=== PATIENT | male | born 1985 | race African-American/Black ===

== ENCOUNTER 2017-02-25 00:54 | Emergency (ER) | payer OTHER ==
[~2017-02-25] VITALS: Ht 188 cm; Wt 68.0 kg
[~2017-02-25 00:54] MED LIST: BACTRIM DS TAB1 EAC1 ORAL; KEFLEX500 MG ORAL; LATANOPROST2.5 ML BOTH EYES; NITROFURANTOIN100 M2 ORAL; NKM; NORCO 5-325 TA1 EACH ORAL; PHENAZOPYRIDIN200 MG ORAL
[2017-02-25] MEDS ORDERED: LATANOPROST2.5 ML BOTH EYES (01:13)
[2017-02-25 01:15] VITALS: BP 112/68
[2017-02-25 01:50] VITALS: BP 120/70
[2017-02-25 02:00] VITALS: BP 120/70
--- NOTE | 2017-02-25 02:14 | Emergency Room Report ---
History of Present Illness General Chief Complaint: Male Urogenital Problems Source: Patient Present Illness HPI 31YOM walk-in asking for "hair thing" to be removed from penis that he's had for 2 months Thought it was infection but doesnt hurt, no change in size. States it bothers him to look at and bothers the girls he dates He denies dysuria, discharge but asking for STD testing since "its been a year. " Allergies: Coded Allergies: No Known Allergies (Unverified , 02/10/16) Patient History Past Medical History: none Past Surgical History: none Pertinent Family History: none Social History: Denies: alcohol use, drug use, smoking Immunizations: UTD Reviewed Nursing Documentation: PMH: Agreed, PSxH: Agreed Review of Systems All Other Systems: negative except mentioned in HPI Physical Exam Vital Signs Date Time Temp Pulse Resp B/P Pulse Ox O2 Delivery O2 Flow Rate FiO2 02/25/17 01:06 97.7 84 18 107/58 96 Room Air Sp02 EP Interpretation: reviewed, normal General Appearance: normal inspection, well appearing, no apparent distress, alert, GCS 15, non-toxic Head: normocephalic, atraumatic Eyes: bilateral eye EOMI, bilateral eye PERRL ENT: normal ENT inspection, hearing grossly normal, normal voice Neck: normal inspection, full range of motion, supple, no bony tend Respiratory: normal inspection, lungs clear, normal breath sounds, no respiratory distress, no retraction, no wheezing Cardiovascular #1: regular rate, rhythm, no edema Gastrointestinal: normal inspection, normal bowel sounds, non tender, soft, no guarding, no hernia Genitourinary: other - Small 1/2 cm papule on penile shaft. Not folliculitis. No vesicles. No sign of infection. No urinary discharge. No scrotal ttp Musculoskeletal: normal inspection, back normal, normal range of motion, Nicol' s Sign negative Neurologic: normal inspection, alert, oriented x3, responsive, spiral binder III-XII nml as tested, motor strength/tone normal, speech normal Psychiatric: normal inspection, judgement/insight normal, mood/affect normal Skin: normal inspection, normal color, no rash Medical Decision Making Diagnostic Impression: Primary Impression: Abnormal urogenital findings Additional Impression: Patient request for diagnostic testing ER Course Penile shaft papule. Not folliculitis. Doubt STD. Told to followup for Derm for cosmetic removal Advised patient we dont do STD testing I provided copy of free or low-cost clinics but patient left before given DC paperwork by RN Last Vital Signs Date Time Temp Pulse Resp B/P Pulse Ox O2 Delivery O2 Flow Rate FiO2 02/25/17 01:06 97.7 84 18 107/58 96 Room Air Status: improved Disposition: HOME, SELF-CARE Condition: Improved Additional Instructions: - Call your insurance company for dermatology referral - Go to one of the free or low-cost clinics for STD testing CHITRA HEWITT M.D. Feb 25, 2017 02:14
== END 2017-02-25 02:30 | disposition home or self-care (01) ==
LOC: EMR 02:17
DX: R86.8 Other abnormal findings in specimens from male genital organs (principal); R23.8 Other skin changes
CPT/HCPCS: 99282

== ENCOUNTER 2017-05-25 21:02 | Emergency (ER) | payer OTHER ==
[~2017-05-25] VITALS: Ht 188 cm; Wt 72.6 kg
[2017-05-25] MEDS ORDERED: AMOXICILLIN500 MG ORAL (22:00)
--- NOTE | 2017-05-25 22:00 | Emergency Room Report ---
History of Present Illness General Chief Complaint: Pain Source: Patient Present Illness HPI Is a 31-year-old male with no pseudogout medical history. He presents with swelling and growth in his left cheek. Onset for last week. Hurts when he eats. No nausea no vomiting. No fever chills denies any other complaint. Denies biting his cheek. Allergies: Coded Allergies: No Known Allergies (Unverified , 02/10/16) Patient History Past Medical History: see triage record, old chart reviewed Past Surgical History: other Pertinent Family History: none Social History: Denies: drug use Immunizations: other Reviewed Nursing Documentation: PMH: Agreed, PSxH: Agreed Review of Systems Eye: Denies: eye pain, blurred vision ENT: Denies: ear pain, nose congestion, throat swelling Respiratory: Denies: cough, shortness of breath Cardiovascular: Denies: chest pain, palpitations Gastrointestinal: Denies: abdominal pain, diarrhea, nausea, vomiting Musculoskeletal: Denies: back pain, joint pain Skin: Denies: rash Neurological: Denies: headache, numbness Endocrine: Denies: increased thirst, increased urine Hematologic/Lymphatic: Denies: easy bruising All Other Systems: negative except mentioned in HPI Physical Exam Vital Signs Date Time Temp Pulse Resp B/P (MAP) Pulse Ox O2 Delivery O2 Flow Rate FiO2 05/25/17 21:34 98.1 77 16 117/71 97 Room Air vitals normal Sp02 EP Interpretation: reviewed, normal General Appearance: well appearing, no apparent distress, alert Head: normocephalic, atraumatic Eyes: bilateral eye PERRL, bilateral eye EOMI ENT: hearing grossly normal, normal pharynx, other - Oropharynx: Inside the left cheek there is a small 1 cm growth with whitish center. It is just next to the upper left molars. No trismus. Neck: full range of motion, supple, no meningismus Respiratory: chest non-tender, lungs clear, normal breath sounds Cardiovascular #1: regular rate, rhythm, no murmur Gastrointestinal: normal bowel sounds, non tender, no mass, no organomegaly, no bruit, non-distended Musculoskeletal: back normal, gait/station normal, normal range of motion Psychiatric: mood/affect normal Skin: warm/dry Procedures Incision and Drainage Incision and Drainage : Consent: Verbal Site: Mouth Wound Location: other - Mouth Anesthesia: 1% Lidocaine Volume Anesthetic (ccs): 1 Patient Tolerated: Well Complications: None Progress I injected it with 1% lidocaine, 1 mL. I made a small incision with a scissor. There is scant amount of pus. Patient tolerated procedure without a problem. Medical Decision Making Diagnostic Impression: Primary Impression: Abscess ER Course This patient with a small abscess in his mouth. Probably from biting and it got infected. No deep infection. Better after I&D. We'll discharge him Last Vital Signs Date Time Temp Pulse Resp B/P (MAP) Pulse Ox O2 Delivery O2 Flow Rate FiO2 05/25/17 21:34 98.1 77 16 117/71 97 Room Air Status: improved Disposition: HOME, SELF-CARE Condition: Stable Scripts Amoxicillin* (AMOXIL*) 500 Mg Capsule 500 MG ORAL THREE TIMES A DAY, #21 CAP Prov: NISH LONGORIA M.D. 05/25/17 Additional Instructions: Followup with your doctor 7 days. Return if symptom worsen. NISH LONGORIA M.D. May 25, 2017 22:00
[2017-05-25 22:04] VITALS: BP 117/71
== END 2017-05-25 22:04 | disposition home or self-care (01) ==
LOC: EMR 21:54
DX: K12.2 Cellulitis and abscess of mouth (principal)
CPT/HCPCS: 10060; 99283

== ENCOUNTER 2017-11-05 14:42 | Emergency (ER) | payer OTHER ==
[~2017-11-05] VITALS: Ht 188 cm; Wt 68.0 kg
[~2017-11-05 14:42] MED LIST changes: +AMOXICILLIN500 MG ORAL
[2017-11-05 15:06] VITALS: BP 117/71
[2017-11-05] MEDS ORDERED: LATANOPROST2.5 ML BOTH EYES (15:09)
--- NOTE | 2017-11-05 15:25 | Emergency Room Report ---
History of Present Illness General Chief Complaint: Male Urogenital Problems Source: Patient Present Illness [facility] The patient is a 32-year-old male presenting for increased urinary urgency for the past 1 month. He denies other symptoms including dysuria, hematuria, penile discharge, testicular pain, fever, chills, back pain, or abdominal pain. He has had UTIs in the past. He denies any sexual contact within the past 1 month. He denies any other symptoms Allergies: Coded Allergies: No Known Allergies (Unverified , 02/10/16) Patient History Past Medical History: see triage record Pertinent Family History: none Reviewed Nursing Documentation: PMH: Agreed; PSxH: Agreed Nursing Documentation-PMH Past Medical History: No History, Except For Review of Systems All Other Systems: negative except mentioned in HPI Physical Exam Vital Signs Date Time Temp Pulse Resp B/P (MAP) Pulse Ox O2 Delivery O2 Flow Rate FiO2 11/05/17 15:06 98.0 62 17 117/71 98 Room Air 98.0 Sp02 EP Interpretation: reviewed, normal General Appearance: no apparent distress, alert, GCS 15, non-toxic Head: normocephalic, atraumatic Eyes: bilateral eye normal inspection, bilateral eye PERRL ENT: hearing grossly normal, normal pharynx, no angioedema, normal voice Gastrointestinal: normal bowel sounds, non tender, soft, non-distended, no guarding, no rebound Musculoskeletal: back normal, gait/station normal, normal range of motion, non- tender Neurologic: alert, oriented x3, responsive, motor strength/tone normal, sensory intact, speech normal Psychiatric: judgement/insight normal, memory normal, mood/affect normal, no suicidal/homicidal ideation Skin: normal color, no rash, warm/dry, well hydrated Medical Decision Making PA Attestation Dr. Yanez is my supervising physician. Patient management was discussed with my supervising physician Diagnostic Impression: Primary Impression: Urinary tract infection Qualified Codes: N39.0 - Urinary tract infection, site not specified ER Course The patient is a 32-year-old male presenting for increased urinary urgency for the past 1 month. DDx considered but not limited to: UTI, STD, orchitis, appendicitis, among others PE: Afebrile. NAD Abd is soft and non tender. No CVA tenderness exam unremarkable UA consistent with UTI The patient will be treated with Bactrim DS and will FU with PMD. ER precautions given Laboratory Tests Test 11/05/17 15:10 Urine Color Addis Urine Appearance Clear Urine pH 6 (4.5-8.0) Urine Specific [place] 1.020 (1.005-1.035) Urine Protein Negative (NEGATIVE) Urine Glucose (UA) Negative (NEGATIVE) Urine Ketones Negative (NEGATIVE) Urine Occult Blood Negative (NEGATIVE) Urine Nitrite Negative (NEGATIVE) Urine Bilirubin Negative (NEGATIVE) Urine Ictotest Negative Urine Urobilinogen 1 MG/DL (0.0-1.0) H Urine Leukocyte Esterase 1+ (NEGATIVE) H Urine RBC 0-2 /HPF (0 - 0) H Urine WBC 5-10 /HPF (0 - 0) H Urine Squamous Epithelial Cells Occasional /LPF Urine Bacteria Few /HPF (NONE) Urine Mucus Few /LPF (NONE/OCC) H Lab Results Impression UA consistent with UTI Last Vital Signs Date Time Temp Pulse Resp B/P (MAP) Pulse Ox O2 Delivery O2 Flow Rate FiO2 11/05/17 15:06 98.0 62 17 117/71 98 Room Air 98.1 Status: improved Disposition: HOME, SELF-CARE Condition: Improved Scripts Sulfamethoxazole/Trimethoprim (BACTRIM 400-80 MG TABLET*) 1 Each Tablet 1 TAB ORAL TWICE A DAY, #14 TAB Prov: ELVIN ALLISON 11/05/17 Phenazopyridine Hcl* (PYRIDIUM*) 200 Mg Tablet 200 MG ORAL THREE TIMES A DAY, #6 TAB 0 Refills Prov: ELVIN ALLISON 11/05/17 Referrals: [facility] (PCP) ELVIN ALLISON Nov 05, 2017 15:25
[2017-11-05 15:45] LABS: APPEARANCE,URINE CLEAR; BILIRUBIN, URINE NEGATIVE (NEGATIVE); COLOR,URINE AMBER; GLUCOSE, URINE (UA) NEGATIVE (NEGATIVE); KETONES,URINE NEGATIVE (NEGATIVE); LEUKOCYTE ESTERASE ,URINE 1+ (NEGATIVE); NITRITE,URINE NEGATIVE (NEGATIVE); PH,URINE 6 (4.5-8.0); PROTEIN,URINE NEGATIVE (NEGATIVE); UROBILINOGEN,URINE 1 MG/DL (0.0-1.0)
[2017-11-05] MEDS ORDERED: BACTRIM 400-801 EACH ORAL (16:16)
[2017-11-05] MEDS ORDERED: PHENAZOPYRIDIN200 MG ORAL (16:16)
[2017-11-05 16:20] VITALS: BP 117/71
== END 2017-11-05 16:20 | disposition home or self-care (01) ==
LOC: EMR 15:00
DX: N39.0 Urinary tract infection, site not specified (principal)
CPT/HCPCS: 81003; 99284

== ENCOUNTER 2019-06-18 02:51 | Emergency (ER) | payer OTHER ==
[~2019-06-18] VITALS: Ht 188 cm; Wt 68.0 kg
[~2019-06-18 02:51] MED LIST changes: +BACTRIM 400-801 EACH ORAL
[2019-06-18 03:00] VITALS: BP 129/83
[2019-06-18] MEDS ORDERED: Ketorolac 30mg Inj IV ONE (03:30)
--- NOTE | 2019-06-18 03:45 | NUR ---
ED Nurse Note: PATIENT AMBULATED TO ED C/O RIGHT ABDOMINAL PAIN X1 HOUR. REPORTS NAUSEA AND VOMITTING. DENIES DIARRHEA PT AAOX4, VSS, NO ACUTE DISTERESS. PT HAS NO SKIN ISSUES. PT IS COOPERATIVE AND RESTLESS STATED PAIN IS 9/10.
[2019-06-18 04:02] LABS: BASOPHILS % (AUTO) 1.2 % (0.0-2.0); EOSINOPHILS % (AUTO) 1.5 % (0.0-3.0); HEMATOCRIT 46.3 % (42.0-52.0); HEMOGLOBIN 15.7 G/DL (14.2-18.0); LYMPHOCYTES % (AUTO) 25.2 % (20.0-45.0); MEAN CORPUSCULAR VOLUME 92 FL (80-99); MONOCYTES % (AUTO) 5.1 % (1.0-10.0); NEUTROPHILS % (AUTO) 67.1 % (45.0-75.0); PLATELET COUNT 219 K/UL (150-450); RED BLOOD COUNT 5.03 M/UL (4.70-6.10); RED CELL DISTRIBUTION WIDTH 10.2 % (11.6-14.8); WHITE BLOOD COUNT 5.7 K/UL (4.8-10.8)
[2019-06-18 04:17] LABS: ANION GAP 9 mmol/L (5-15); BLOOD UREA NITROGEN 15 mg/dL (7-18); CALCIUM 9.5 MG/DL (8.5-10.1); CARBON DIOXIDE 28 MMOL/L (21-32); CHLORIDE 104 MMOL/L (98-107); POTASSIUM 5.1 MMOL/L (3.5-5.1); SODIUM 141 MMOL/L (136-145)
[2019-06-18 04:27] LABS: ALANINE AMINOTRANSFERASE 21 U/L (12-78); ALBUMIN 4.5 G/DL (3.4-5.0); ALBUMIN/GLOBULIN RATIO 1.2 (1.0-2.7); ALKALINE PHOSPHATASE 55 U/L (46-116); ASPARTATE AMINO TRANSFERASE 35 U/L (15-37); BILIRUBIN,TOTAL 1.8 MG/DL (0.2-1.0)
[2019-06-18 04:30] VITALS: BP 125/85
--- NOTE | 2019-06-18 04:30 | NUR ---
ED Nurse Note: Pt blood sent to lab.
[2019-06-18] MEDS ORDERED: Omnipaque-300 100ml vial INJ PRN (05:00)
[2019-06-18 05:19] LABS: BILIRUBIN, URINE NEGATIVE (NEGATIVE); COLOR,URINE AMBER; GLUCOSE, URINE (UA) NEGATIVE (NEGATIVE); KETONES,URINE NEGATIVE (NEGATIVE); LEUKOCYTE ESTERASE ,URINE 1+ (NEGATIVE); NITRITE,URINE NEGATIVE (NEGATIVE); PH,URINE 6 (4.5-8.0); PROTEIN,URINE 2+ (NEGATIVE); UROBILINOGEN,URINE NORMAL MG/DL (0.0-1.0)
--- NOTE | 2019-06-18 05:21 | NUR ---
ED Nurse Note: PT WITH APPRENTICE FUNERAL DIRECTOR.
[2019-06-18 05:29] LABS: BILIRUBIN,DIRECT 0.2 MG/DL (0.0-0.3)
[2019-06-18 05:30] VITALS: BP 120/79
[2019-06-18 05:30] LABS: APPEARANCE,URINE SLIGHTLY CLOUDY
--- NOTE | 2019-06-18 05:42 | Emergency Room Report ---
History of Present Illness General Chief Complaint: Abdominal Pain Source: Patient (Orlando Orozco MD) Present Illness HPI 33-year-old male presents ED for evaluation. Patient complaining of abdominal pain started about 1 hour ago from sleep. Right-sided, sharp, 10 out of 10, nonradiating. Notes nausea and vomiting. Denies diarrhea. Denies fevers or chills. Denies chest pain. No other aggravating relieving factors. Denies any other associated symptoms (Orlando Orozco MD) Allergies: Coded Allergies: No Known Allergies (Unverified , 02/10/16) Patient History Past Medical History: none Past Surgical History: none Pertinent Family History: none Social History: Denies: smoking, alcohol use, drug use Immunizations: UTD Reviewed Nursing Documentation: PMH: Agreed; PSxH: Agreed (Orlando Orozco MD) Nursing Documentation-PMH Past Medical History: No History, Except For (Orlando Orozco MD) Review of Systems All Other Systems: negative except mentioned in HPI (Orlando Orozco MD) Physical Exam Vital Signs Date Time Temp Pulse Resp B/P (MAP) Pulse Ox O2 Delivery O2 Flow Rate FiO2 06/18/19 02:57 97.3 70 14 120/57 (78) 95 Room Air Sp02 EP Interpretation: reviewed, normal General Appearance: no apparent distress, alert, GCS 15, non-toxic Head: normocephalic, atraumatic Eyes: bilateral eye normal inspection, bilateral eye PERRL ENT: hearing grossly normal, normal pharynx, no angioedema, normal voice Neck: full range of motion, supple/symm/no masses Respiratory: chest non-tender, lungs clear, normal breath sounds, speaking full sentences Cardiovascular #1: regular rate, rhythm, no edema Cardiovascular #2: 2+ carotid (R), 2+ carotid (L), 2+ radial (R), 2+ radial (L) , 2+ dorsalis pedis (R), 2+ dorsalis pedis (L) Gastrointestinal: normal bowel sounds, soft, non-distended, no guarding, no rebound, tenderness - RUQ Rectal: deferred Genitourinary: normal inspection, no CVA tenderness Musculoskeletal: back normal, normal range of motion, gait/station normal, non- tender Neurologic: alert, motor strength/tone normal, oriented x3, sensory intact, responsive, speech normal Psychiatric: judgement/insight normal, memory normal, mood/affect normal, no suicidal/homicidal ideation Reflexes: 3+ bicep (R), 3+ bicep (L), 3+ tricep (R), 3+ tricep (L), 3+ knee (R) , 3+ knee (L) Lymphatic: no adenopathy (rOlando Orozco MD) Medical Decision Making Diagnostic Impression: Primary Impression: Abdominal pain Additional Impression: Prostatitis Labs Test 06/18/19 03:30 06/18/19 03:40 Urine Color Addis Urine Appearance Slightly cloudy Urine pH 6 (4.5-8.0) Urine Specific [place] 1.020 (1.005-1.035) Urine Protein 2+ (NEGATIVE) Urine Glucose (UA) Negative (NEGATIVE) Urine Ketones Negative (NEGATIVE) Urine Blood 5+ (NEGATIVE) Urine Nitrite Negative (NEGATIVE) Urine Bilirubin Negative (NEGATIVE) Urine Ictotest Positive (NEGATIVE) Urine Urobilinogen Normal MG/DL (0.0-1.0) Urine Leukocyte Esterase 1+ (NEGATIVE) Urine RBC Tntc /HPF (0 - 0) Urine WBC 2-4 /HPF (0 - 0) Urine Squamous Epithelial Cells None /LPF (NONE/OCC) Urine Bacteria Few /HPF (NONE) White Blood Count 5.7 K/UL (4.8-10.8) Red Blood Count 5.03 M/UL (4.70-6.10) Hemoglobin 15.7 G/DL (14.2-18.0) Hematocrit 46.3 % (42.0-52.0) Mean Corpuscular Volume 92 FL (80-99) Mean Corpuscular Hemoglobin 31.2 PG (27.0-31.0) Mean Corpuscular Hemoglobin Concent 33.8 G/DL (32.0-36.0) Red Cell Distribution Width 10.2 % (11.6-14.8) Platelet Count 219 K/UL (150-450) Mean Platelet Volume 6.8 FL (6.5-10.1) Neutrophils (%) (Auto) 67.1 % (45.0-75.0) Lymphocytes (%) (Auto) 25.2 % (20.0-45.0) Monocytes (%) (Auto) 5.1 % (1.0-10.0) Eosinophils (%) (Auto) 1.5 % (0.0-3.0) Basophils (%) (Auto) 1.2 % (0.0-2.0) Sodium Level 141 MMOL/L (136-145) Potassium Level 5.1 MMOL/L (3.5-5.1) Chloride Level 104 MMOL/L (98-107) Carbon Dioxide Level 28 MMOL/L (21-32) Anion Gap 9 mmol/L (5-15) Blood Urea Nitrogen 15 mg/dL (7-18) Creatinine 1.0 MG/DL (0.55-1.30) Estimat Glomerular Filtration Rate > 60 mL/min (>60) Glucose Level 97 MG/DL (74-106) Calcium Level 9.5 MG/DL (8.5-10.1) Total Bilirubin 1.8 MG/DL (0.2-1.0) Direct Bilirubin 0.2 MG/DL (0.0-0.3) Aspartate Amino Transf (AST/SGOT) 35 U/L (15-37) Alanine Aminotransferase (ALT/SGPT) 21 U/L (12-78) Alkaline Phosphatase 55 U/L (46-116) Total Protein 8.4 G/DL (6.4-8.2) Albumin 4.5 G/DL (3.4-5.0) Globulin 3.9 g/dL Albumin/Globulin Ratio 1.2 (1.0-2.7) Lipase 132 U/L (73-393) (Orlando Orozco MD) ER Course Please refer to the initial note for the history exam and presentation On repeat evaluation patient is improved resting comfortably Blood work was at baseline levels CT was pending at the time of interpretation The reading reported no obvious acute process other than the prostate inflammation At a later time radiology has updated the reading and reports that there was some inflammation of the vesicle vessels Patient was attempted to be called at the number provided However after 2 attempts we did mail a report regarding change in the CT reading and the need to contact us back Patient had been placed on antibiotics However the additional findings do need to be relayed to the patient Labs Test 06/18/19 03:30 06/18/19 03:40 Urine Color Addis Urine Appearance Slightly cloudy Urine pH 6 (4.5-8.0) Urine Specific [place] 1.020 (1.005-1.035) Urine Protein 2+ (NEGATIVE) Urine Glucose (UA) Negative (NEGATIVE) Urine Ketones Negative (NEGATIVE) Urine Blood 5+ (NEGATIVE) Urine Nitrite Negative (NEGATIVE) Urine Bilirubin Negative (NEGATIVE) Urine Ictotest Positive (NEGATIVE) Urine Urobilinogen Normal MG/DL (0.0-1.0) Urine Leukocyte Esterase 1+ (NEGATIVE) Urine RBC Tntc /HPF (0 - 0) Urine WBC 2-4 /HPF (0 - 0) Urine Squamous Epithelial Cells None /LPF (NONE/OCC) Urine Bacteria Few /HPF (NONE) Urine Opiates Screen Negative (NEGATIVE) Urine Barbiturates Screen Negative (NEGATIVE) Phencyclidine (PCP) Screen Negative (NEGATIVE) Urine Amphetamines Screen Negative (NEGATIVE) Urine Benzodiazepines Screen Negative (NEGATIVE) Urine Cocaine Screen Negative (NEGATIVE) Urine Marijuana (THC) Screen Positive (NEGATIVE) White Blood Count 5.7 K/UL (4.8-10.8) Red Blood Count 5.03 M/UL (4.70-6.10) Hemoglobin 15.7 G/DL (14.2-18.0) Hematocrit 46.3 % (42.0-52.0) Mean Corpuscular Volume 92 FL (80-99) Mean Corpuscular Hemoglobin 31.2 PG (27.0-31.0) Mean Corpuscular Hemoglobin Concent 33.8 G/DL (32.0-36.0) Red Cell Distribution Width 10.2 % (11.6-14.8) Platelet Count 219 K/UL (150-450) Mean Platelet Volume 6.8 FL (6.5-10.1) Neutrophils (%) (Auto) 67.1 % (45.0-75.0) Lymphocytes (%) (Auto) 25.2 % (20.0-45.0) Monocytes (%) (Auto) 5.1 % (1.0-10.0) Eosinophils (%) (Auto) 1.5 % (0.0-3.0) Basophils (%) (Auto) 1.2 % (0.0-2.0) Sodium Level 141 MMOL/L (136-145) Potassium Level 5.1 MMOL/L (3.5-5.1) Chloride Level 104 MMOL/L (98-107) Carbon Dioxide Level 28 MMOL/L (21-32) Anion Gap 9 mmol/L (5-15) Blood Urea Nitrogen 15 mg/dL (7-18) Creatinine 1.0 MG/DL (0.55-1.30) Estimat Glomerular Filtration Rate > 60 mL/min (>60) Glucose Level 97 MG/DL (74-106) Calcium Level 9.5 MG/DL (8.5-10.1) Total Bilirubin 1.8 MG/DL (0.2-1.0) Direct Bilirubin 0.2 MG/DL (0.0-0.3) Aspartate Amino Transf (AST/SGOT) 35 U/L (15-37) Alanine Aminotransferase (ALT/SGPT) 21 U/L (12-78) Alkaline Phosphatase 55 U/L (46-116) Total Protein 8.4 G/DL (6.4-8.2) Albumin 4.5 G/DL (3.4-5.0) Globulin 3.9 g/dL Albumin/Globulin Ratio 1.2 (1.0-2.7) Lipase 132 U/L (73-393) (Kristin Allen DO) CT/MRI/US Diagnostic Results CT/MRI/US Diagnostic Results : Impression CT abdomen pelvisCT ABDOMEN & PELVIS With Contrast: There is moderate circumference wall thickening of the rectumwith mild infiltration of the surrounding fat-suggestive of proctitis. There is a small amount of free fluid in the cul-de-sac. No bowel obstruction or abnormal bowel dilatation. Normal appendix. Borderline wall thickening of the bowl (Kristin Allen DO) Last Vital Signs Date Time Temp Pulse Resp B/P (MAP) Pulse Ox O2 Delivery O2 Flow Rate FiO2 06/18/19 04:17 97.4 06/18/19 03:00 70 14 Room Air 06/18/19 03:00 129/83 95 Status: improved (Orlando Orozco MD) Status: improved (Kristin Allen DO) Disposition: HOME, SELF-CARE Condition: Improved Scripts Ciprofloxacin Hcl* (CIPROFLOXACIN HCL*) 500 Mg Tablet 500 MG ORAL Q12H, #10 TAB 0 Refills Prov: Kristin Allen DO 06/18/19 Ciprofloxacin Hcl* (CIPROFLOXACIN HCL*) 500 Mg Tablet 500 MG ORAL Q12H, #10 TAB 0 Refills Prov: Kristin Allen DO 06/18/19 Referrals: [facility] (PCP) Additional Instructions: Patient is provided with the discharge instructions notified to follow up with primary doctor in the next 2-3 days otherwise return to the er with any worsening symptoms. Please note that this report is being documented using DRAGON technology. This can lead to erroneous entry secondary to incorrect interpretation by the dictating instrument. Orlando Orozco MD Jun 18, 2019 05:42 Kristin Allen DO Jun 18, 2019 08:06
--- NOTE | 2019-06-18 06:16 | NUR ---
ED Nurse Note: Pt is resting well. Pt is more cooperative, apologetic, and less restless.
--- NOTE | 2019-06-18 06:19 | NUR ---
ED Nurse Note: Pt states pain is 0/10
[2019-06-18 06:30] VITALS: BP 118/78
--- NOTE | 2019-06-18 07:06 | NUR ---
HAND-OFF: Report given to SAMIRA De La Rosa.
--- NOTE | 2019-06-18 07:06 | NUR ---
ED Nurse Note: Pt received and was endorsed care from SAMIRA Yousif.
--- NOTE | 2019-06-18 07:08 | NUR ---
ED Nurse Note: Pt is resting comfortably at this time. He denies any pain. Pt IV on right and left arm are patent and intact. No acute distress noted. Will continue to monitor.
[2019-06-18 07:15] VITALS: BP 116/70
--- NOTE | 2019-06-18 07:23 | Diagnostic Imaging Report ---
Clinical Indication: Abdominal pain for one day Technique: No oral contrast utilized, per emergency room physician request IV administration nonionic contrast. Venous phase spiral acquisition obtained through the abdomen and pelvis. Multiplanar reconstructions were generated. Total dose length product 656 mGycm. CTDIvol(s) 11 mGy. Dose reduction achieved using automated exposure control Comparison: none Findings: The appendix is normal. There is no small bowel distention. No free or loculated intraperitoneal gas or fluid is evident. There is suggestion of slight wall thickening of the rectum and infiltration of the perirectal fat. No evidence of diverticulosis or diverticulitis. There is a small amount of free pelvic fluid. The liver, gallbladder, bile ducts, pancreas, spleen, adrenals, kidneys are unremarkable. No retroperitoneal or mesenteric mass or adenopathy. No pelvic mass or adenopathy.. There is equivocal minimal wall thickening of the bladder The seminal vesicles are prominent and tubules within them appear dilated. The bones are unremarkable. The included lung bases are clear. Impression: Circumferential rectal wall thickening and infiltration of the surrounding fat, suspicious for proctitis. Small amount of free pelvic fluid Equivocal minimal bladder wall thickening, doubtful significance but could indicate mild cystitis changes. The above findings are in agreement with the [facility] preliminary report Large seminal vesicles with dilated tubules. This suggests seminal vesiculitis. This was not reported on the [facility] preliminary report, but was phoned to Dr. Allen the time of interpretation The CT scanner at [facility] is accredited by the [employer] and the scans are performed using protocols designed to limit radiation exposure to as low as reasonably achievable to attain images of sufficient resolution adequate for diagnostic evaluation.
[2019-06-18] MEDS ORDERED: CIPROFLOXACIN500 M2 ORAL ×2 (08:31→09:08)
[2019-06-18 09:10] VITALS: BP 110/60
--- NOTE | 2019-06-18 09:10 | NUR ---
ER DISCHARGE NOTE: Patient is cleared to be discharged per ERMD, pt is aox4, on room air, with stable vital signs. pt was given dc and prescription instructions, pt was able to verbalize understanding, pt id band and iv site removed without complications. pt is able to ambulate with steady gait. pt took all belongings.
== END 2019-06-18 09:18 | disposition home or self-care (01) ==
LOC: EMR 03:11
DX: N41.9 Inflammatory disease of prostate, unspecified (principal); R10.9 Unspecified abdominal pain; R11.2 Nausea with vomiting, unspecified
CPT/HCPCS: 36415; 74177; 80053; 80307; 81003; 82248; 83690; 85025; 96361; 96374; 96375; J1885; J2405; J7030; Q9967; S0028; Z7502; 99284

== ENCOUNTER 2019-06-21 10:03 | Emergency (ER) | payer OTHER ==
[~2019-06-21] VITALS: Ht 188 cm; Wt 68.0 kg
[~2019-06-21 10:03] MED LIST changes: +CIPROFLOXACIN500 M2 ORAL
[2019-06-21] MEDS ORDERED: CIPROFLOXACIN500 M2 ORAL (10:38)
--- NOTE | 2019-06-21 10:38 | Emergency Room Report ---
History of Present Illness General Chief Complaint: Medication Refill Source: Patient Present Illness HPI Patient states that he was seen 4 days ago here at the emergency department for abdominal pain. He was given ciprofloxacin for presumed colitis. He states that he has an appointment with his primary care physician on Monday. However, he is concerned that his symptoms will return and is requesting prolongation of his ciprofloxacin over Monday and Monday. This morning he states he had some abdominal cramping. He states that has since resolved. He denies recurrence of the pain and symptoms that he had originally. Right now he feels well. Allergies: Coded Allergies: No Known Allergies (Unverified , 02/10/16) Patient History Past Medical History: see triage record, other - Glaucoma Social History: Reports: drug use - THC; Denies: smoking, alcohol use Reviewed Nursing Documentation: PMH: Agreed; PSxH: Agreed Nursing Documentation-PMH Past Medical History: No History, Except For Review of Systems All Other Systems: negative except mentioned in HPI Physical Exam Vital Signs Date Time Temp Pulse Resp B/P (MAP) Pulse Ox O2 Delivery O2 Flow Rate FiO2 06/21/19 10:12 98.8 76 16 109/70 (83) 99 Room Air Sp02 EP Interpretation: reviewed, normal General Appearance: no apparent distress, alert, GCS 15, non-toxic Head: normocephalic, atraumatic Eyes: bilateral eye normal inspection ENT: hearing grossly normal, normal pharynx, no angioedema, normal voice Neck: normal inspection Respiratory: no respiratory distress, no retraction, no accessory muscle use, speaking full sentences Gastrointestinal: non tender, soft, non-distended, no guarding, no rebound Rectal: deferred Musculoskeletal: back normal, normal range of motion, gait/station normal, non- tender Neurologic: alert, motor strength/tone normal, oriented x3, sensory intact, responsive, speech normal Psychiatric: judgement/insight normal, memory normal, mood/affect normal, no suicidal/homicidal ideation Skin: no rash, normal color Medical Decision Making Diagnostic Impression: Primary Impression: Prostatitis ER Course I did review the patient's previous visit. He underwent a CT scan that showed evidence of prostatitis. Prostatitis does need a 10-day course at least of antibiotics. Therefore, I will go ahead and treat him with a longer course of ciprofloxacin. He has a follow-up appointment with his primary care physician in 3 days. He is otherwise well-appearing without any recurrence of his symptoms. He was given the results of his CT scan so that he could bring it to his primary care physician. He was given close return precautions and follow- up instructions. Last Vital Signs Date Time Temp Pulse Resp B/P (MAP) Pulse Ox O2 Delivery O2 Flow Rate FiO2 06/21/19 10:12 98.8 76 16 109/70 (83) 99 Room Air Status: improved Disposition: HOME, SELF-CARE Condition: Improved Elizabeth Monet DO Jun 21, 2019 10:38
[2019-06-21 11:01] VITALS: BP 109/70
[2019-06-21 11:02] VITALS: BP 109/70
--- NOTE | 2019-06-21 11:04 | NUR ---
ED Nurse Note: pt walked in for med refill and medical records. seen by ermd no nsg orders.
--- NOTE | 2019-06-21 11:05 | NUR ---
ER DISCHARGE NOTE: Patient is cleared to be discharged per ERMD, pt is aox4, on room air, with stable vital signs. pt was given dc and prescription instructions, pt was able to verbalize understanding, pt id band removed without complications. pt is able to ambulate with steady gait. pt took all belongings.
== END 2019-06-21 10:45 | disposition home or self-care (01) ==
LOC: EMR 10:40
DX: N41.9 Inflammatory disease of prostate, unspecified (principal)
CPT/HCPCS: 99281